=== PATIENT | female | born 1990 | race Caucasian/White ===

== ENCOUNTER 2021-11-07 16:50 | Inpatient (IN) | payer BC ==
[~2021-11-07] VITALS: Ht 175.3 cm; Wt 84.5 kg
[2021-11-08] VITALS (34 sets, daily range): BP systolic 101–126; BP diastolic 62–85; PULSE 59–90; TEMP 98.1–99.6
[2021-11-08] MEDS ORDERED: LOVENOX 4040 MG/0.4 SQ (07:17)
[2021-11-08] MEDS ORDERED: PRENATAL TABLET PO (07:18)
[2021-11-08] MEDS ORDERED: ZYRTEC 10MG10 MG PO (07:20)
[2021-11-08] MEDS ORDERED: ASPIRIN 81M81 MG/TA2 PO (07:22)
[2021-11-08 08:10] LABS: BASO % 0.3 % (0.0-2.0); EOS % 0.3 % (0.0-4.0); GRAN # 4.3 K/mm3 (1.4-6.5); GRAN % 69.7 % (42.2-75.2); HEMOGLOBIN 11.9 g/dl (12.5-16.0); LYMPH # 1.3 K/mm3 (1.2-3.4); LYMPH % 21.7 % (20.0-51.0); MEAN CELL VOLUME 90 fl (80.0-100.0); MEAN CORPUSCULAR HEMOGLOBIN 31 pg (27-31); MEAN CORPUSCULAR HGB CONC 34 g/dl (33.0-37.0); MEAN PLATELET VOLUME 11.8 fl (7.4-10.4); MONO # 0.4 K/mm3 (0.1-0.6); PLATELET COUNT 163 K/mm3 (130-400); RED BLOOD COUNT 3.84 M/mm3 (4.10-5.30); REDCELL DISTRIBUTION WIDTH-CV 12.6 % (11.5-14.5)
[2021-11-08 08:13] LABS: HEMATOCRIT 34.7 % (37.0-47.0)
--- NOTE | 2021-11-08 08:48 | NUR ---
0630 - 31 YO AT 39.0 WKS GESTATION TO LABOR ROOM 5 FOR INDUCTION OF LABOR FOR ANTIPHOSPHOLIPID SYNDROME UNDER SERVICES OF DR JOYNER. PT DENIES ANY REGULAR CTXS, LEAKING FLUID OR VAGINAL BLEEDING AND REPORTS GOOD ACTIVITY. CYTOTEC INDUCTION PROCESS DISCUSSED WITH PT AND
--- NOTE | 2021-11-08 08:54 | NUR ---
0650 DR ANYA COLEMAN RN, NOTIFIED PT ARRIVED AT 0630, FHT'S WITH MINIMAL VARIABLILITY AND NO ACCELS
--- NOTE | 2021-11-08 09:15 | NUR ---
0740 SVE FT INNER OS, 50%, CYTOTEC 25MCG PLACED TO ACCOUNT DEVELOPMENT MANAGER FORNIX OF VAGINA 0750 DR JOYNER PHONES RN, UPDATE GIVEN OF SVE, CYTOTEC PLACEMENT AND REASSURING FHT'S
--- NOTE | 2021-11-08 10:19 | NUR ---
PT SITS UP IN BED VISITING WITH FAMILY, FEELING A LITTLE CRAMPY. DENIES ANY NEEDS
--- NOTE | 2021-11-08 11:12 | NUR ---
6646 - DR JOYNER AT BEDSIDE
--- NOTE | 2021-11-08 13:19 | NUR ---
1215 - DR JOYNER CALLS RN FOR UPDATE, NOTIFIED OF SVE AT 1140M SECOND CYTOTEC PLACED, CAT 1 TRACING
--- NOTE | 2021-11-08 14:56 | NUR ---
RESTS QUIETLY WITH EYES CLOSED ON SIDE, UTERINE CTXS NOT TRACING D/T MATERNAL POSITION
--- NOTE | 2021-11-08 16:07 | NUR ---
HAS RESTED SOME, UP TO BATHROOM, VOIDING WITHOUT DIFFICULTY
--- NOTE | 2021-11-08 16:39 | NUR ---
1540 - SVE 1545 - DR JOYNER NOTIFIED AND SVE, ORDER TO PLACE THIRD DOSE OF CYTOTEC 25MCG 1555 - CYTOTEC 25MCG TO POSTERIOR FORNIX OF VAGINA
--- NOTE | 2021-11-08 20:35 | NUR ---
DR. JOYNER IN ROOM AT THIS TIME TO DISCUSS OPTIONS WITH PT AND SPOUSE. OPTION TO CONTINUE INDUCTION PROCESS BY PLACING COOKS BALLOON AND STARTING PITOCIN, OR IF UNABLE TO PLACE COOKS BALLOON TO START PITOCIN ONLY, OPT FOR A PRIMARY ELECTIVE C/S, OR TO STOP INDUCTION AND GO HOME AND RETURN AT A LATER DATE FOR INDUCTION OR WAIT UNTIL LABOR BEGINS NATURALLY. QUESTIONS ENCOURAGED AND ANSWERED BY DR. JOYNER, UNDERSTANDING VERBALIZED. PT AND SPOUSE TO DISCUSS THESE OPTIONS AND TO CALL STAFF BACK ONCE THEY DECIDE
--- NOTE | 2021-11-08 21:30 | NUR ---
2112- PT OPTS TO CONTINUE WITH INDUCTION PROCESS. DR. JOYNER IN ROOM TO PLACE COOKS BALLOON. 2113- SVE OF /[address] JOYNER, PT OPTS TO HAVE BALLOON PLACED AT THIS TIME. 2117- DR. JOYNER INSERTS SPECULUM AND PLACES COOKS BALLOON, 60MLS NS IN UTERINE BALLOON, 40MLS IN VAGINAL BALLOON. 2125- PITOCIN STARTED AT 2MU. PER DR. JOYNER PITOCIN TO BE INCREASED APPROXIMATELY EVERY 20 MINUTES AND COOKS BALLOON TENSION TO BE TIGHTENED WELL.
--- NOTE | 2021-11-08 22:00 | NUR ---
PT IN LEFT LATERAL, DIFFICULTY TRACING CONTRACTIONS DUE TO POSITION, TOCO ADJUSTED.
--- NOTE | 2021-11-08 22:15 | NUR ---
CONTINUE DIFFICULTY TRACING CONTRACTION PATTERN DUE TO MATERNAL POSITION IN LEFT LATERAL, TOCO ADJUSTED.
[2021-11-09] VITALS (20 sets, daily range): BP systolic 102–149; BP diastolic 60–85; PULSE 63–99; TEMP 97.8–98.9
--- NOTE | 2021-11-09 01:35 | NUR ---
0123- COLLEEN KAYE IN ROOM FOR EPIDURAL PLACEMENT. 0126- PT SITTING AT SIDE OF BED FOR EPIDURAL PLACEMENT. 0129- SINGLE SHOT GIVEN BY COLLEEN KAYE. PT TOLERATED WELL. 0131- TEST DOSE GIVEN BY Sabrina CASTRO CRNA. PT TOLERATED WELL. 0135- PT REPOSITIONED INTO SEMIFOWLERS FOLLOWING EPIDURAL PLACEMENT.
--- NOTE | 2021-11-09 02:20 | NUR ---
0150- PT LAID BACK FOR PRYOR PLACEMENT, SVE OF /-1. 0220- RECURRENT LATE DECELS NOTED SINCE PRYOR PLACEMENT, MULTIPLE POSITION CHANGES, IVF BOLUS, AND DECREASE IN PITOCIN. DECELS RESOLVING AT THIS TIME. 0228- PT STATES RECTAL PRESSURE, SVE OF COMPLETE/+2. 0230- DR. JOYNER NOTIFIED OF SVE OF COMPLETE/+2, RECURRENT LATE DECELS. DR. JOYNER OK WITH THIS NURSE PUSHING WITH PT AND TO CALL IF BABY IS NOT TOLERATING PUSHING OR WHEN READY FOR DELIVERY.
--- NOTE | 2021-11-09 02:46 | NUR ---
PT BEGINS PUSHING WITH THIS NURSE.
--- NOTE | 2021-11-09 03:25 | NUR ---
0243- PRYOR DC'D, 60MLS URINE OUT. 0253-DR. JOYNER NOTIFED OF IMPENDING DELIVERY AND LATE DECELS INTO THE 70'S WITH PUSHING. WILL COME TO HOSPITAL NOW FOR DELIVERY. 0304- DR. JOYNER IN ROOM FOR DELIVERY. 0307- SPONTANEOUS VAGINAL DELIVERY OF VIABLE BABY GIRL. BABY TO MOTHER'S CHEST, DELAYED CORD CLAMPING PERFORMED. DR. JOYNER CLAMPS CORD, CORD CUT BY FOB. BABY CARES ASSUMED BY Sabrina EVANS RN. 0312- SPONTANEOUS DELIVERY OF PLACENTA, PITOCIN STARTED AT 333ML/HR PER PROTOCOL. 0318- TRAILING MEMBRANES NOTED BY DR. JOYNER, BANJO CURETTE PERFORMED BY DR. JOYNER 0321- 0.2MG IM METHERGINE GIVEN IN LEFT THIGH. 0325- RECOVERY STARTED.
--- NOTE | 2021-11-09 06:00 | NUR ---
PT UP TO BATHROOM, TOLERATED WELL. ABLE TO VOID 150MLS. ASSISTED WITH PERICARE. ICE PACK, PERIPAD AND MESH UNDERWEAR APPLIED. PT AMBULATORY TO , ORIENTED TO ROOM. DENIES NEED FOR PAIN MEDICATION AT THIS TIME.
[2021-11-10 00:30] VITALS: BP 103/67; PULSE 85; TEMP 97.8
[2021-11-10 07:15] VITALS: BP 113/75; PULSE 99; TEMP 97.7
[2021-11-10] MEDS ORDERED: LOVENOX 4040 MG/0.4 SQ (09:31)
[2021-11-10] MEDS ORDERED: IBU800 M1 PO (09:31)
--- NOTE | 2021-11-10 10:01 | NUR ---
Initial visit; Parents thanked Accident Investigator for offering congratulations and God's blessings for the of their daughter. Accident Investigator thanked family for choosing [facility].
[2021-11-10 19:15] VITALS: BP 115/82; PULSE 85; TEMP 97.9
[2021-11-11 07:15] VITALS: BP 100/72; PULSE 79; TEMP 98.3
--- NOTE | 2021-11-11 12:13 | NUR ---
DISCHARGE TEACHING COMPLETED. EDUCATED ON FOLLOW UP APPOINTMENT AND PRESCRIPTIONS. QUESTIONS INVITED AND ANSWERED.
== END 2021-11-11 13:43 | disposition home or self-care (01) | DRG 806 ==
LOC: LDR 16:50 → OB 11-08 06:23 → LDR 11-08 06:23 → OB 11-09 06:10
PROVIDERS: ADMIT Student in an Organized Health Care Education/Training Program
PROC: 10E0XZZ Delivery of Products of Conception, External Approach (ICD-10-PCS; principal; 2021-11-09)
PROC: 0KQM0ZZ Repair Perineum Muscle, Open Approach (ICD-10-PCS; 2021-11-09)
PROC: 3E033VJ Introduction of Other Hormone into Peripheral Vein, Percutaneous Approach (ICD-10-PCS; 2021-11-09)
DX: O99.52 Diseases of the respiratory system complicating childbirth (principal); D68.61 Antiphospholipid syndrome; Z37.0 Single live birth; J45.909 Unspecified asthma, uncomplicated; O99.12 Other diseases of the blood and blood-forming organs and certain disorders involving the immune mechanism complicating childbirth; O76 Abnormality in fetal heart rate and rhythm complicating labor and delivery; O99.344 Other mental disorders complicating childbirth; F41.9 Anxiety disorder, unspecified; O70.1 Second degree perineal laceration during delivery; Z86.16 Personal history of COVID-19; Z3A.39 39 weeks gestation of pregnancy
CPT/HCPCS: J1650; J2210; J2590; J7120